=== PATIENT | female | born 1960 | race Caucasian/White ===

== ENCOUNTER 2023-02-11 07:40 | Inpatient (IN) ==
[2023-02-11] MEDS ORDERED: IOPAMIDOL 100 ML BOTTLE IV ONE (07:41)
[2023-02-11] MEDS ORDERED: 0.9 % SODIUM CHLORIDE 1,000 ML IV ONE ×2 (07:57→09:08)
[2023-02-11] MEDS ORDERED: ONDANSETRON 4 MG/2 ML VIAL IV ONE ×2 (08:13→11:23)
[2023-02-11 08:17] LABS: POC Calcium, Ionized 1.07 (1.16-1.32); POC Potassium 3.3 (3.3-5.1)
[2023-02-11] MEDS ORDERED: PANTOPRAZOLE 40 MG VIAL IV ONE (08:19)
[2023-02-11] MEDS ORDERED: fentaNYL 100 MCG/2 ML VIAL IV ONE (08:19)
[2023-02-11 08:38] LABS: Basophils # (Auto) 0.03 K/mcL (0.00-0.30); Basophils % (Auto) 0.2 % (0.0-2.0); Eosinophils # (Auto) 0.01 K/mcL (0.00-0.70); Eosinophils % (Auto) 0.1 % (0.0-7.0); Hematocrit 44.2 % (34.1-44.9); Hemoglobin 13.8 g/dL (11.2-15.7); Lymphocytes # (Auto) 1.28 K/mcL (1.50-4.80); Lymphocytes % (Auto) 6.8 % (15.5-49.0); Mean Cell Volume 79.5 fL (80.0-100.0); Mean Corpuscular HGB Conc 31.2 g/dL (31.0-36.0); Mean Platelet Volume 9.5 fL (8.8-12.5); Monocytes # (Auto) 0.96 K/mcL (0.10-0.90); Monocytes % (Auto) 5.1 % (1.0-12.0); Neutrophils % (Auto) 87.4 % (38.0-78.0); Platelet Count 440 K/mcL (140-440); RBC 5.56 M/mcL (3.59-5.38); Red Cell Distribution Width 18.1 % (11.5-14.5); WBC 18.8 K/mcL (4.5-11.0)
[2023-02-11] MEDS ORDERED: metroNIDAZOLE 500 MG/100 ML BAG IV ONE (09:04)
[2023-02-11] MEDS ORDERED: CIPROFLOXACIN 400 MG/200 ML BAG IV ONE (09:05)
[2023-02-11 09:07] LABS: ALT/SGPT 11 U/L (<40); AST/SGOT 18 U/L (<32); Alkaline Phosphatase 99 U/L (39-117); Bilirubin,Direct < 0.2 mg/dL (0-0.3); Bilirubin,Total 0.3 mg/dL (0.1-1.0); Globulin 3.5 gm/dL (2.2-3.7)
[2023-02-11] MEDS ORDERED: morphine 4 MG/ML VIAL IV ONE (09:18)
[2023-02-11] MEDS ORDERED: morphine 2 MG/ML VIAL IV ONE (11:23)
[2023-02-11 12:45] LABS: Hematocrit 41.2 % (34.1-44.9); Hemoglobin 12.6 g/dL (11.2-15.7)
[2023-02-11] MEDS ORDERED: metroNIDAZOLE 500 MG/100 ML BAG IV SCH (14:00)
[2023-02-11] MEDS: HYDROmorphone 1 MG/ML SYRINGE IV PRN ×3 (14:13→21:23)
[2023-02-11] MEDS ORDERED: PROMETHAZINE 25 MG/ML VIAL IV PRN (15:38)
[2023-02-11] MEDS: 0.9 % SODIUM CHLORIDE 1,000 ML IV SCH ×2 (16:02→22:00)
[2023-02-11] MEDS: metroNIDAZOLE 500 MG/100 ML BAG IV SCH ×2 (16:08→23:15)
[2023-02-11] MEDS: 0.9 % SODIUM CHLORIDE 10 ML SYRINGE IV SCH ×2 (16:12→22:00)
[2023-02-11] MEDS: methylPREDNISolone SOD SUCC 125 MG/2 ML VIAL IV SCH ×2 (18:06→23:15)
[2023-02-11] MEDS: PANTOPRAZOLE 40 MG VIAL IV SCH (18:06)
[2023-02-11] MEDS: DICYCLOMINE 20 MG TABLET PO SCH ×2 (18:07→21:23)
[2023-02-11] MEDS ORDERED: LORazepam 1 MG TABLET PO PRN (20:14)
[2023-02-11] MEDS ORDERED: LORazepam 0.5 MG TABLET ONE (20:26)
[2023-02-11] MEDS ORDERED: ACETAMINOPHEN 1,000 MG/100 ML BAG IV ONE (20:27)
[2023-02-11] MEDS: ACETAMINOPHEN 1,000 MG/100 ML BAG IV PRN (20:30)
[2023-02-11] MEDS: DOCUSATE SODIUM 100 MG CAPSULE PO SCH (20:41)
[2023-02-11] MEDS ORDERED: CIPROFLOXACIN 400 MG/200 ML BAG IV SCH (21:00)
[2023-02-11] MEDS: CIPROFLOXACIN 400 MG/200 ML BAG IV SCH (21:22)
[2023-02-11] MEDS ORDERED: NIFEdipine 30 MG TAB.XL.24H PO ONE (22:36)
[2023-02-12] MEDS: HYDROmorphone 1 MG/ML SYRINGE IV PRN ×7 (00:20→22:28)
[2023-02-12] MEDS: 0.9 % SODIUM CHLORIDE 1,000 ML IV SCH ×4 (03:43→16:20)
[2023-02-12] MEDS ORDERED: hydrALAZINE 20 MG/ML VIAL ONE (04:29)
[2023-02-12] MEDS: hydrALAZINE 20 MG/ML VIAL IV PRN ×2 (04:33→16:21)
[2023-02-12] MEDS: methylPREDNISolone SOD SUCC 125 MG/2 ML VIAL IV SCH ×3 (05:25→17:50)
[2023-02-12] MEDS: ACETAMINOPHEN 1,000 MG/100 ML BAG IV PRN (05:26)
[2023-02-12 07:07] LABS: Hematocrit 33.9 % (34.1-44.9); Hemoglobin 10.7 g/dL (11.2-15.7); Mean Cell Volume 79.8 fL (80.0-100.0); Mean Corpuscular HGB Conc 31.6 g/dL (31.0-36.0); Mean Platelet Volume 9.4 fL (8.8-12.5); Platelet Count 353 K/mcL (140-440); RBC 4.25 M/mcL (3.59-5.38); Red Cell Distribution Width 17.7 % (11.5-14.5)
[2023-02-12] MEDS: metroNIDAZOLE 500 MG/100 ML BAG IV SCH ×3 (07:09→17:50)
[2023-02-12] MEDS: 0.9 % SODIUM CHLORIDE 10 ML SYRINGE IV SCH ×3 (07:09→22:30)
[2023-02-12 07:31] LABS: ALT/SGPT 7 U/L (<40); AST/SGOT 13 U/L (<32); Albumin 3.1 gm/dL (3.2-5.2); Alkaline Phosphatase 69 U/L (39-117); Bilirubin,Direct < 0.2 mg/dL (0-0.3); Bilirubin,Total 0.2 mg/dL (0.1-1.0); Blood Urea Nitrogen 15 mg/dL (8-23); Calcium 8.6 mg/dL (8.6-10.4); Carbon Dioxide 23 mmol/L (22-30); Chloride 101 mmol/L (96-108); Glomerular Filtration Rate 78; Glucose 165 mg/dL (70-105); Lactate Dehydrogenase 204 U/L (135-225); Phosphorous 2.2 mg/dL (2.5-4.5); Triglycerides 63 mg/dL (<150)
[2023-02-12 07:32] LABS: Basophils # (Auto) 0.02 K/mcL (0.00-0.30); Basophils % (Auto) 0.1 % (0.0-2.0); Eosinophils # (Auto) 0 K/mcL (0.00-0.70); Eosinophils % (Auto) 0 % (0.0-7.0); Lymphocytes # (Auto) 0.79 K/mcL (1.50-4.80); Lymphocytes % (Auto) 4.4 % (15.5-49.0); Monocytes # (Auto) 0.46 K/mcL (0.10-0.90); Monocytes % (Auto) 2.6 % (1.0-12.0); Neutrophils % (Auto) 92.4 % (38.0-78.0)
[2023-02-12] MEDS: PANTOPRAZOLE 40 MG VIAL IV SCH ×2 (07:46→16:21)
[2023-02-12 08:00] LABS: Anisocytosis 1+ (None Seen); Band Neutrophils % 20 % (0-10); Hypochromasia FEW (None Seen); Lymphocytes % 5 % (15-49); Monocytes % (Manual) 4 % (1-12); Myelocytes % 1 %; Platelet Estimate NORMAL (Normal); Polychromasia FEW (None Seen); RBC Morphology ABNORMAL (Normal); Segmented Neutrophils % 70 % (38-78)
[2023-02-12] MEDS: BUDESONIDE 3 MG CAP.XL.24H PO SCH (08:39)
[2023-02-12] MEDS: NIFEdipine 30 MG TAB.XL.24H PO SCH (08:40)
[2023-02-12] MEDS: DOCUSATE SODIUM 100 MG CAPSULE PO SCH ×2 (08:40→21:47)
[2023-02-12] MEDS: DICYCLOMINE 20 MG TABLET PO SCH ×4 (08:40→21:47)
[2023-02-12] MEDS: CIPROFLOXACIN 400 MG/200 ML BAG IV SCH (10:37)
[2023-02-12] MEDS: LORazepam 0.5 MG TABLET PO PRN ×2 (18:37→22:27)
[2023-02-12] MEDS: POTASSIUM PHOSPHATE 40 MEQ in DEXTROSE 5% IN WATER 500 ML IV SCH (19:16)
[2023-02-13] MEDS: CIPROFLOXACIN 400 MG/200 ML BAG IV SCH ×3 (00:01→09:05)
[2023-02-13] MEDS: 0.9 % SODIUM CHLORIDE 1,000 ML IV SCH ×4 (00:09→22:01)
[2023-02-13] MEDS: methylPREDNISolone SOD SUCC 125 MG/2 ML VIAL IV SCH ×4 (01:26→18:54)
[2023-02-13] MEDS: metroNIDAZOLE 500 MG/100 ML BAG IV SCH ×4 (01:27→18:56)
[2023-02-13] MEDS: POTASSIUM PHOSPHATE 40 MEQ in DEXTROSE 5% IN WATER 500 ML IV SCH (02:55)
[2023-02-13] MEDS: HYDROmorphone 1 MG/ML SYRINGE IV PRN ×6 (03:04→23:16)
[2023-02-13] MEDS: PANTOPRAZOLE 40 MG VIAL IV SCH ×2 (07:14→20:58)
[2023-02-13] MEDS: 0.9 % SODIUM CHLORIDE 10 ML SYRINGE IV SCH ×3 (07:26→22:01)
[2023-02-13] MEDS: BUDESONIDE 3 MG CAP.XL.24H PO SCH (09:05)
[2023-02-13] MEDS: DOCUSATE SODIUM 100 MG CAPSULE PO SCH ×2 (09:06→22:02)
[2023-02-13] MEDS: NIFEdipine 30 MG TAB.XL.24H PO SCH (09:06)
[2023-02-13] MEDS: DICYCLOMINE 20 MG TABLET PO SCH ×4 (09:06→22:02)
[2023-02-13] MEDS: ONDANSETRON 4 MG/2 ML VIAL IV PRN (09:36)
[2023-02-13] MEDS: hydrALAZINE 20 MG/ML VIAL IV PRN (09:44)
[2023-02-13 09:50] LABS: Basophils # (Auto) 0.03 K/mcL (0.00-0.30); Basophils % (Auto) 0.1 % (0.0-2.0); Eosinophils # (Auto) 0 K/mcL (0.00-0.70); Eosinophils % (Auto) 0 % (0.0-7.0); Hematocrit 34.7 % (34.1-44.9); Hemoglobin 10.9 g/dL (11.2-15.7); Lymphocytes # (Auto) 0.94 K/mcL (1.50-4.80); Lymphocytes % (Auto) 4.6 % (15.5-49.0); Mean Cell Volume 78.7 fL (80.0-100.0); Mean Corpuscular HGB Conc 31.4 g/dL (31.0-36.0); Mean Platelet Volume 9.4 fL (8.8-12.5); Monocytes # (Auto) 0.55 K/mcL (0.10-0.90); Monocytes % (Auto) 2.7 % (1.0-12.0); Platelet Count 394 K/mcL (140-440); RBC 4.41 M/mcL (3.59-5.38); WBC 20.6 K/mcL (4.5-11.0)
[2023-02-13] MEDS ORDERED: LORazepam (PP) 1 MG TABLET (#4) PO PRN (13:29)
[2023-02-13] MEDS ORDERED: MEROPENEM 2 GM in 0.9 % SODIUM CHLORIDE 50 ML IV SCH (14:00)
[2023-02-13] MEDS: MEROPENEM 2 GM in 0.9 % SODIUM CHLORIDE 100 ML IV SCH ×2 (14:31→23:16)
[2023-02-13] MEDS: LORazepam 0.5 MG TABLET PO PRN ×2 (14:35→23:16)
[2023-02-14] MEDS: metroNIDAZOLE 500 MG/100 ML BAG IV SCH ×4 (00:35→18:08)
[2023-02-14] MEDS: methylPREDNISolone SOD SUCC 125 MG/2 ML VIAL IV SCH ×4 (00:35→18:08)
[2023-02-14] MEDS: 0.9 % SODIUM CHLORIDE 1,000 ML IV SCH ×4 (00:36→21:02)
[2023-02-14] MEDS: hydrALAZINE 20 MG/ML VIAL IV PRN ×2 (03:28→21:01)
[2023-02-14] MEDS: HYDROmorphone 1 MG/ML SYRINGE IV PRN ×4 (05:40→21:07)
[2023-02-14 06:30] LABS: Basophils # (Auto) 0.02 K/mcL (0.00-0.30); Basophils % (Auto) 0.1 % (0.0-2.0); Eosinophils # (Auto) 0 K/mcL (0.00-0.70); Eosinophils % (Auto) 0 % (0.0-7.0); Hematocrit 35.8 % (34.1-44.9); Hemoglobin 11.3 g/dL (11.2-15.7); Lymphocytes # (Auto) 1.02 K/mcL (1.50-4.80); Lymphocytes % (Auto) 5.4 % (15.5-49.0); Mean Cell Volume 78.5 fL (80.0-100.0); Mean Corpuscular HGB Conc 31.6 g/dL (31.0-36.0); Mean Platelet Volume 9.5 fL (8.8-12.5); Monocytes # (Auto) 0.52 K/mcL (0.10-0.90); Monocytes % (Auto) 2.8 % (1.0-12.0); Neutrophils % (Auto) 90.1 % (38.0-78.0); Platelet Count 385 K/mcL (140-440); RBC 4.56 M/mcL (3.59-5.38); WBC 18.9 K/mcL (4.5-11.0)
[2023-02-14] MEDS: 0.9 % SODIUM CHLORIDE 10 ML SYRINGE IV SCH ×3 (06:32→21:02)
[2023-02-14] MEDS: MEROPENEM 2 GM in 0.9 % SODIUM CHLORIDE 100 ML IV SCH ×3 (07:04→21:02)
[2023-02-14] MEDS: PANTOPRAZOLE 40 MG VIAL IV SCH ×2 (07:36→16:51)
[2023-02-14] MEDS: BUDESONIDE 3 MG CAP.XL.24H PO SCH (09:55)
[2023-02-14] MEDS: DICYCLOMINE 20 MG TABLET PO SCH ×4 (09:55→21:01)
[2023-02-14] MEDS: DOCUSATE SODIUM 100 MG CAPSULE PO SCH ×2 (09:55→21:02)
[2023-02-14] MEDS: DULoxetine 30 MG CAPSULE PO SCH (09:55)
[2023-02-14] MEDS: NIFEdipine 30 MG TAB.XL.24H PO SCH (09:55)
[2023-02-14] MEDS: LORazepam 0.5 MG TABLET PO PRN ×2 (10:20→21:01)
[2023-02-15] MEDS: methylPREDNISolone SOD SUCC 125 MG/2 ML VIAL IV SCH ×4 (00:14→18:13)
[2023-02-15] MEDS: metroNIDAZOLE 500 MG/100 ML BAG IV SCH ×4 (00:14→18:05)
[2023-02-15] MEDS: 0.9 % SODIUM CHLORIDE 1,000 ML IV SCH ×3 (00:18→15:20)
[2023-02-15] MEDS: HYDROmorphone 1 MG/ML SYRINGE IV PRN ×5 (02:22→19:06)
[2023-02-15] MEDS: MEROPENEM 2 GM in 0.9 % SODIUM CHLORIDE 100 ML IV SCH ×3 (05:02→23:50)
[2023-02-15] MEDS: 0.9 % SODIUM CHLORIDE 10 ML SYRINGE IV SCH ×3 (05:03→20:32)
[2023-02-15 06:25] LABS: Basophils # (Auto) 0.03 K/mcL (0.00-0.30); Basophils % (Auto) 0.2 % (0.0-2.0); Eosinophils # (Auto) 0 K/mcL (0.00-0.70); Eosinophils % (Auto) 0 % (0.0-7.0); Hematocrit 35.6 % (34.1-44.9); Hemoglobin 11.3 g/dL (11.2-15.7); Lymphocytes # (Auto) 1.55 K/mcL (1.50-4.80); Lymphocytes % (Auto) 10.5 % (15.5-49.0); Mean Cell Volume 78.6 fL (80.0-100.0); Mean Corpuscular HGB Conc 31.7 g/dL (31.0-36.0); Mean Platelet Volume 9.6 fL (8.8-12.5); Monocytes # (Auto) 0.74 K/mcL (0.10-0.90); Neutrophils % (Auto) 82.3 % (38.0-78.0); Platelet Count 371 K/mcL (140-440); RBC 4.53 M/mcL (3.59-5.38); Red Cell Distribution Width 17.7 % (11.5-14.5); WBC 14.8 K/mcL (4.5-11.0)
[2023-02-15 06:57] LABS: ALT/SGPT 8 U/L (<40); AST/SGOT 11 U/L (<32); Albumin 3.3 gm/dL (3.2-5.2); Albumin/Globulin Ratio 1.2 (1.0-2.3); Alkaline Phosphatase 77 U/L (39-117); Bilirubin,Direct < 0.2 mg/dL (0-0.3); Bilirubin,Total 0.2 mg/dL (0.1-1.0); Blood Urea Nitrogen 22 mg/dL (8-23); Calcium 8.2 mg/dL (8.6-10.4); Carbon Dioxide 24 mmol/L (22-30); Chloride 99 mmol/L (96-108); Globulin 2.7 gm/dL (2.2-3.7); Glomerular Filtration Rate 97; Glucose 130 mg/dL (70-105); Lactate Dehydrogenase 263 U/L (135-225); Phosphorous 1.8 mg/dL (2.5-4.5); Triglycerides 131 mg/dL (<150); Uric Acid 2.7 mg/dL (2.5-8.0)
[2023-02-15] MEDS: PANTOPRAZOLE 40 MG VIAL IV SCH ×2 (06:58→17:56)
[2023-02-15] MEDS ORDERED: IOPAMIDOL 100 ML BOTTLE IV ONE (07:57)
[2023-02-15] MEDS: DOCUSATE SODIUM 100 MG CAPSULE PO SCH ×2 (08:00→20:31)
[2023-02-15] MEDS: BUDESONIDE 3 MG CAP.XL.24H PO SCH (08:46)
[2023-02-15] MEDS: DULoxetine 30 MG CAPSULE PO SCH (08:46)
[2023-02-15] MEDS: DICYCLOMINE 20 MG TABLET PO SCH ×4 (08:47→20:31)
[2023-02-15] MEDS: NIFEdipine 30 MG TAB.XL.24H PO SCH (08:47)
[2023-02-15] MEDS: LORazepam 0.5 MG TABLET PO PRN ×2 (08:51→20:31)
[2023-02-15] MEDS: ONDANSETRON 4 MG/2 ML VIAL IV PRN (11:50)
[2023-02-15] MEDS: METOCLOPRAMIDE 10 MG TABLET PO SCH ×2 (17:57→20:31)
[2023-02-15] MEDS: hydrALAZINE 20 MG/ML VIAL IV PRN (19:07)
[2023-02-15] MEDS: POTASSIUM PHOSPHATE 40 MEQ in DEXTROSE 5% IN WATER 500 ML IV SCH (19:50)
[2023-02-16] MEDS: 0.9 % SODIUM CHLORIDE 1,000 ML IV SCH ×2 (00:05→10:26)
[2023-02-16] MEDS: methylPREDNISolone SOD SUCC 125 MG/2 ML VIAL IV SCH ×3 (00:07→13:15)
[2023-02-16] MEDS: hydrALAZINE 20 MG/ML VIAL IV PRN (00:08)
[2023-02-16] MEDS: HYDROmorphone 1 MG/ML SYRINGE IV PRN ×4 (00:08→13:18)
[2023-02-16] MEDS: metroNIDAZOLE 500 MG/100 ML BAG IV SCH ×3 (01:08→13:07)
[2023-02-16] MEDS: POTASSIUM PHOSPHATE 40 MEQ in DEXTROSE 5% IN WATER 500 ML IV SCH (03:04)
[2023-02-16] MEDS: 0.9 % SODIUM CHLORIDE 10 ML SYRINGE IV SCH ×2 (04:44→14:15)
[2023-02-16] MEDS: MEROPENEM 2 GM in 0.9 % SODIUM CHLORIDE 100 ML IV SCH ×2 (05:52→15:10)
[2023-02-16 07:02] LABS: Basophils # (Auto) 0.03 K/mcL (0.00-0.30); Basophils % (Auto) 0.2 % (0.0-2.0); Eosinophils # (Auto) 0 K/mcL (0.00-0.70); Eosinophils % (Auto) 0 % (0.0-7.0); Hematocrit 34.5 % (34.1-44.9); Hemoglobin 11.1 g/dL (11.2-15.7); Lymphocytes % (Auto) 9.4 % (15.5-49.0); Mean Cell Volume 78.1 fL (80.0-100.0); Mean Corpuscular HGB Conc 32.2 g/dL (31.0-36.0); Mean Platelet Volume 9.6 fL (8.8-12.5); Monocytes # (Auto) 0.32 K/mcL (0.10-0.90); Monocytes % (Auto) 2.3 % (1.0-12.0); Neutrophils % (Auto) 85.6 % (38.0-78.0); Platelet Count 365 K/mcL (140-440); RBC 4.42 M/mcL (3.59-5.38); Red Cell Distribution Width 17.6 % (11.5-14.5); WBC 13.8 K/mcL (4.5-11.0)
[2023-02-16] MEDS: PANTOPRAZOLE 40 MG VIAL IV SCH (07:15)
[2023-02-16 07:16] LABS: ALT/SGPT 11 U/L (<40); AST/SGOT 12 U/L (<32); Albumin 3.3 gm/dL (3.2-5.2); Albumin/Globulin Ratio 1.2 (1.0-2.3); Alkaline Phosphatase 84 U/L (39-117); Bilirubin,Direct < 0.2 mg/dL (0-0.3); Bilirubin,Total 0.2 mg/dL (0.1-1.0); Blood Urea Nitrogen 23 mg/dL (8-23); Calcium 8.2 mg/dL (8.6-10.4); Carbon Dioxide 25 mmol/L (22-30); Chloride 95 mmol/L (96-108); Globulin 2.8 gm/dL (2.2-3.7); Glomerular Filtration Rate 92; Glucose 161 mg/dL (70-105); Lactate Dehydrogenase 273 U/L (135-225); Phosphorous 3.9 mg/dL (2.5-4.5); Triglycerides 97 mg/dL (<150); Uric Acid 3.2 mg/dL (2.5-8.0)
[2023-02-16] MEDS: METOCLOPRAMIDE 10 MG TABLET PO SCH ×2 (07:30→13:07)
[2023-02-16] MEDS: DOCUSATE SODIUM 100 MG CAPSULE PO SCH (07:34)
[2023-02-16] MEDS: DULoxetine 30 MG CAPSULE PO SCH (08:05)
[2023-02-16] MEDS: DICYCLOMINE 20 MG TABLET PO SCH ×2 (08:05→13:07)
[2023-02-16] MEDS: BUDESONIDE 3 MG CAP.XL.24H PO SCH (08:06)
[2023-02-16] MEDS: NIFEdipine 30 MG TAB.XL.24H PO SCH (08:55)
== END 2023-02-16 16:50 | disposition home or self-care (01) | DRG 394 ==
LOC: ED 07:40 → MEDSUR 14:37
PROVIDERS: ADMIT Family Medicine Adult Medicine; ATTEND Family Medicine Adult Medicine